=== PATIENT | female | born 1995 | race American Indian/Alaskan Native ===

== ENCOUNTER 2017-05-08 03:46 | Emergency (ER) | payer MEDICAID ==
[2017-05-08] MEDS ORDERED: PROVENTIL IH ONE (03:59)
[2017-05-08] MEDS ORDERED: DELTASONE PO ONE (06:06)
[2017-05-08] MEDS ORDERED: DUONEB *Not for PRN Use IH ONE (06:06)
--- NOTE | 2017-05-08 07:33 | Emergency Department Report ---
ED Asthma HPI - General Chief Complaint: Adult Asthma Stated Complaint: ASTHMA Time Seen by Provider: 05/08/17 07:21 Source: patient Mode of arrival: Ambulatory Limitations: No Limitations - History of Present Illness Initial Comments: PT states she has a hx of asthma. PT states she has not been sick recently. PT states she was feeling fine last night but she woke up and the room was hot. PT states heat can trigger her asthma. PT states she was wheezing and she was out of her albuterol, so she came to the ED. PT states she was given medication while she was in the ED and she is feeling better. MD Complaint: wheezing -: During the night Asthma History: childhood onset Severity: moderate, similar to prior Context: ran out of meds, other (room was hot) Associated Symptoms: dry cough. denies: productive cough, fever Treatments Prior to Arrival: other (none) - Related Data Current Asthma Therapy: none (out of albuterol ) Previous Rx's Medication Instructions Recorded Last Taken Type ALBUTEROL NEB's [Proventil 0.083% 2.5 mg IH QID PRN #25 neb 05/08/17 Unknown Rx NEBS] Albuterol Sulfate [Ventolin HFA] 2 puff IH Q4H PRN #1 hfa.aer.ad 05/08/17 Unknown Rx Azithromycin [Zithromax] 250 mg PO DAILY #6 tablet 05/08/17 Unknown Rx methylPREDNISolone [Medrol] 4 mg PO DAILY #1 tab.ds.pk 05/08/17 Unknown Rx Allergies Allergy/AdvReac Type Severity Reaction Status Date / Time No Known Allergies Allergy Unverified 05/08/17 03:55 ED Review of Systems ROS: Stated complaint: ASTHMA Other details as noted in HPI Comment: All other systems reviewed and negative Constitutional: denies: chills, fever ENT: denies: throat pain, congestion Respiratory: wheezing. denies: cough Cardiovascular: denies: chest pain Gastrointestinal: denies: abdominal pain, nausea, vomiting Genitourinary: denies: abnormal menses ED Past Medical Hx - Past Medical History Previous Medical History?: Yes Hx Asthma: Yes - Surgical History Past Surgical History?: No - Social History Smoking Status: Never Smoker Substance Use Type: Alcohol, Marijuana - Medications Home Medications: Home Medications Medication Instructions Recorded Confirmed Last Taken Type ALBUTEROL NEB's [Proventil 0.083% 2.5 mg IH QID PRN #25 neb 05/08/17 Unknown Rx NEBS] Albuterol Sulfate [Ventolin HFA] 2 puff IH Q4H PRN #1 hfa.aer.ad 05/08/17 Unknown Rx Azithromycin [Zithromax] 250 mg PO DAILY #6 tablet 05/08/17 Unknown Rx methylPREDNISolone [Medrol] 4 mg PO DAILY #1 tab.ds.pk 05/08/17 Unknown Rx ED Physical Exam - General Limitations: No Limitations General appearance: alert, in no apparent distress - Head Head exam: Present: atraumatic, normocephalic, normal inspection - Eye Eye exam: Present: normal appearance, PERRL, EOMI. Absent: conjunctival injection - ENT ENT exam: Present: normal exam, mucous membranes moist, normal external ear exam - Neck Neck exam: Present: normal inspection, full ROM - Respiratory Respiratory exam: Present: normal lung sounds bilaterally. Absent: respiratory distress, wheezes, rales, rhonchi, stridor, chest wall tenderness, accessory muscle use, decreased breath sounds - Cardiovascular Cardiovascular Exam: Present: regular rate, normal rhythm, normal heart sounds - GI/Abdominal GI/Abdominal exam: Present: soft. Absent: tenderness - Extremities Exam Extremities exam: Present: normal inspection, full ROM - Back Exam Back exam: Present: normal inspection, full ROM. Absent: tenderness, CVA tenderness (R), CVA tenderness (L), muscle spasm, paraspinal tenderness, vertebral tenderness - Neurological Exam Neurological exam: Present: alert, oriented X3, normal gait - Psychiatric Psychiatric exam: Present: normal affect, normal mood - Skin Skin exam: Present: warm, intact, normal color ED Course Vital Signs 05/08/17 05/08/17 03:55 08:17 Temperature 97.5 F L 98.4 F Pulse Rate 102 H 83 Respiratory 20 20 Rate Blood Pressure 108/73 Blood Pressure 119/76 [Left] O2 Sat by Pulse 97 99 Oximetry - Reevaluation(s) Reevaluation #1: 05/08/17 07:40 PT states she is feeling much better. Lungs CTA at this time. PT wanting dc home. PT stable for discharge. PT aware chest XR has no radiologist report. - Pulse Oximetry Interpretation Digit-Finger Initial Pulse Oximetry Readin Actions Taken: none ED Medical Decision Making - Radiology Data Radiology results: image reviewed interpreted by me: CXR - increased bronchial thickening - Differential Diagnosis asthma exacerbation, wheezing, Critical Care Time: No Critical care attestation.: If time is entered above; I have spent that time in minutes in the direct care of this critically ill patient, excluding procedure time. ED Disposition Clinical Impression: Acute asthma exacerbation Qualifiers: Asthma severity: mild intermittent Qualified Code(s): J45.21 - Mild intermittent asthma with (acute) exacerbation Disposition: TO HOME OR SELFCARE Is pt being admited?: No Does the pt Need Aspirin: No Condition: Stable Instructions: Asthma (ED) Additional Instructions: Follow up with PCP in 3-5 days limit/ avoid your asthma triggers Return to ED if worsening or concerns Prescriptions: ALBUTEROL NEB's [Proventil 0.083% NEBS] 2.5 mg IH QID PRN #25 neb PRN Reason: Wheezing Albuterol Sulfate [Ventolin HFA] 2 puff IH Q4H PRN #1 hfa.aer.ad PRN Reason: Shortness Of Breath Azithromycin [Zithromax] 250 mg PO DAILY #6 tablet methylPREDNISolone [Medrol] 4 mg PO DAILY #1 tab.ds.pk Referrals: PRIMARY CARE, [Primary Care Provider] - 3-5 Days ANT MURO MD [Staff Physician] - 3-5 Days [facility] [Outside] - 3-5 Days [facility] [Outside] - 3-5 Days Time of Disposition: 07:43
[2017-05-08 08:18] VITALS: BP 119/76
--- NOTE | 2017-05-08 09:28 | XRay Report ---
Chest 2 views: History: Asthma. Findings: Normal cardiomediastinal silhouette. Trachea is midline. No consolidation, pneumothorax or pleural effusion. Impression: No acute cardiopulmonary findings.
== END 2017-05-08 08:19 | disposition home or self-care (01) ==
LOC: ED 03:46
DX: J45.21 Mild intermittent asthma with (acute) exacerbation (principal); F12.10 Cannabis abuse, uncomplicated
CPT/HCPCS: 71020; 94640; 99283; J7512